=== PATIENT | male | born 1985 | race Caucasian/White ===

== ENCOUNTER 2017-08-26 18:43 | Emergency (ER) | payer MEDICAID, SELFPAY ==
--- NOTE | 2017-08-26 18:52 | CPS ---
PATIENT INTUBATED PER [facility]IOR RO ARRIVAL,
--- NOTE | 2017-08-26 19:11 | ED.RN ---
PT FULL ARREST UPON ARRIVAL, SEE CODE DOCUMENTATION. PRONOUNCED [id number], Jacey LEGGETT MD.
--- NOTE | 2017-08-26 20:21 | ED.RN ---
DR. WARE SPOKE WITH FAMILY, FAMILY WENT HOME. DR. WARE ALSO SPOKE WITH [employer] [facility] AND MADE THEM AWARE THAT PATIENT IS NOT A CANDIDATE FOR DONATION. LUDA WILL BE IN DEPARTMENT TO TAKE PATIENT TO HOME. FAMILY AWARE.
--- NOTE | 2017-08-27 02:09 | ED.VISSUMM ---
- ER Visit Summary Date of Service: 08/26/17 Chief Complaint: Full code History of Present Illness: The patient is a 32 M brought in by EMS as a full cardiac arrest. EMS was called for an unresponsive male. He was noted to be in asystole on their arrival. Patient was given 2 rounds of epinephrine and 2 rounds of Narcan. He was intubated by EMS and transported. EMS does state that bystanders were unable to say when the patient was last seen. Physical Examination: Patient is unresponsive without a pulse on and being bagged via ET tube. Head neck examination was no obvious external trauma. He has dark oral secretions. He has pulse noted only with chest compressions. Abdomen is soft and nontender. Extremity examinations reveal no sign of trauma. Test Results: [] Emergency Department Course and Treatment: There is faint color change noted on easy. Auto pulse was stopped and breath sounds were heard bilaterally with bagging. No pulse was continued. Patient received 2 additional rounds of epinephrine and 1 amp of bicarb here. On repeat rhythm checks he remained in asystole. On final repeat check he remained in asystole with no cardiac motion noted on bedside ultrasound. He is pronounced at 18: 45. Mother and sister were present in the waiting room and notified. Health Services Manager has been contacted. Treatment Plan: [] Disposition: [] Impression: Cardiac arrest This note was generated with [employer] dictation software. It may contain incorrect words, spelling, and punctuation that were not noted in review of the chart prior to signing ED Disposition - Plan for ED Patient: Disposition: Chief Complaint: CPR Referrals: Care Physician,No Primary [Primary Care Provider] -
--- NOTE | 2017-08-27 02:12 | ED.DCSUM_ITS ---
- ER Visit Summary Date of Service: 08/26/17 Chief Complaint: Full code History of Present Illness: The patient is a 32 M brought in by EMS as a full cardiac arrest. EMS was called for an unresponsive male. He was noted to be in asystole on their arrival. Patient was given 2 rounds of epinephrine and 2 rounds of Narcan. He was intubated by EMS and transported. EMS does state that bystanders were unable to say when the patient was last seen. Physical Examination: Patient is unresponsive without a pulse on and being bagged via ET tube. Head neck examination was no obvious external trauma. He has dark oral secretions. He has pulse noted only with chest compressions. Abdomen is soft and nontender. Extremity examinations reveal no sign of trauma. Test Results: [] Emergency Department Course and Treatment: There is faint color change noted on easy. Auto pulse was stopped and breath sounds were heard bilaterally with bagging. No pulse was continued. Patient received 2 additional rounds of epinephrine and 1 amp of bicarb here. On repeat rhythm checks he remained in asystole. On final repeat check he remained in asystole with no cardiac motion noted on bedside ultrasound. He is pronounced at 18: 45. Mother and sister were present in the waiting room and notified. Map M[employer] has been contacted. Treatment Plan: [] Disposition: [] Impression: Cardiac arrest This note was generated with [employer] dictation software. It may contain incorrect words, spelling, and punctuation that were not noted in review of the chart prior to signing ED Disposition - Plan for ED Patient: Disposition: Chief Complaint: CPR Referrals: Care Physician,No Primary [Primary Care Provider] -
== END 2017-08-26 22:28 ==
LOC: ED 18:52
PROVIDERS: Emergency Provider Emergency Medicine
DX: I46.9 Cardiac arrest, cause unspecified (principal)
CPT/HCPCS: 92950; 99285; J7030; A4216